=== PATIENT | female | born 1965 | race Caucasian/White ===

== ENCOUNTER 2016-10-06 11:47 | Observation (INO) | payer OTHER ==
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
[2016-10-06] MEDS ORDERED: NALOXONE HCL 0.4 MG/ML INJ IVP PRN (14:20)
[2016-10-06] MEDS ORDERED: ONDANSETRON 4 MG/2 ML VIAL IVP PRN (14:20)
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
[2016-10-06] MEDS ORDERED: LACTULOSE 20 GM/30 ML UDCUP PO PRN (17:02)
[2016-10-06] MEDS ORDERED: BISACODYL 10 MG SUPP PR PRN (17:02)
[2016-10-06] MEDS ORDERED: MAGNESIUM HYDROXIDE 30 ML UDCUP PO PRN (17:02)
[2016-10-06] MEDS ORDERED: POLYETHYLENE GLYCOL 3350 17 GM PKT PO PRN (17:02)
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
[2016-10-06 18:44] LABS: HEMOGLOBIN 12.7 g/dL (12.6-16.3)
[2016-10-06] MEDS: SENNOSIDES/DOCUSATE SODIUM TAB PO SCH (20:46)
[2016-10-06] MEDS: HYDROCODONE/APAP 5/325 TAB PO PRN (22:58)
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
[2016-10-07] MEDS: SENNOSIDES/DOCUSATE SODIUM TAB PO SCH ×2 (09:16→21:01)
[2016-10-07] MEDS: ENOXAPARIN 40 MG/0.4 ML SYR SC SCH (09:17)
[2016-10-07] MEDS: CYCLOBENZAPRINE 10 MG TAB PO PRN ×2 (09:17→15:33)
[2016-10-07] MEDS: ACETAMINOPHEN 325 MG TAB PO PRN ×2 (09:17→14:52)
[2016-10-07] MEDS: HYDROCODONE/APAP 5/325 TAB PO PRN (22:01)
[2016-10-08] MEDS: ACETAMINOPHEN 325 MG TAB PO PRN ×3 (07:38→20:41)
[2016-10-08] MEDS: SENNOSIDES/DOCUSATE SODIUM TAB PO SCH ×2 (07:46→20:41)
[2016-10-08] MEDS: ENOXAPARIN 40 MG/0.4 ML SYR SC SCH (07:47)
[2016-10-08] MEDS: CYCLOBENZAPRINE 10 MG TAB PO PRN ×2 (10:34→16:03)
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
[2016-10-08] MEDS ORDERED: traMADol 50 MG TAB PO PRN (20:35)
[2016-10-09] MEDS: ACETAMINOPHEN 325 MG TAB PO PRN (06:15)
[2016-10-09 07:49] VITALS: BP 96/62; PULSE 58; RESP 14; TEMP 98.5; O2SAT 95
[2016-10-09] MEDS: SENNOSIDES/DOCUSATE SODIUM TAB PO SCH (08:57)
[2016-10-09] MEDS: CYCLOBENZAPRINE 10 MG TAB PO PRN (08:57)
[2016-10-09] MEDS: ENOXAPARIN 40 MG/0.4 ML SYR SC SCH (08:58)
--- NOTE | 2016-10-09 12:23 | PDIAF ---
- Diagnosis Diagnosis: Supierior and inferior pubic rami fracture, parasymphyseal pubic fracture, Code Status: Full Code - Medication Management Discharge Medications: Medications to Continue on Transfer Cyclobenzaprine [Flexeril 10 MG (*)] 10 mg PO TID PRN #0 tab 10/09/16 [Last Taken Unknown] Hydrocodone/APAP 5/325 [[place] 5/325 (*)] 1 - 2 tab PO Q4HRS PRN #0 tab 10/09/16 [Last Taken Unknown] traMADol [Ultram 50 mg (*)] 50 - 100 mg PO Q6 PRN #0 tab 10/09/16 [Last Taken Unknown] Discharge Medications: Refer to the Discharge Home Medication list for PRN reason. PICC Care - Routine: N/A - Orders Services needed: Physical Therapy, Occupational Therapy Diet Recommendation: no restrictions on diet Diet Texture: Regular Texture Diet Brown: Not applicable Hernan Stockings Discontinue Date: Discontinue once patient is mobile Activity/Weight Bearing Restrictions: Weight bearing as tolerated BLE with assistive device - Follow Up Care Current Providers and Referrals: Tyrell Venegas MD [Medical Doctor] - Patient,NotPresent [Unknown] - As per Instructions
== END 2016-10-09 11:09 | disposition home health service (06) ==
LOC: EDUNIT# → INTOOBSV 13:51 → F3N 15:02
PROVIDERS: ADMIT Surgery; ATTEND Surgery
DX: S32.511A Fracture of superior rim of right pubis, initial encounter for closed fracture (principal); S32.591A Other specified fracture of right pubis, initial encounter for closed fracture; S32.10XA Unspecified fracture of sacrum, initial encounter for closed fracture; V19.9XXA Pedal cyclist (driver) (passenger) injured in unspecified traffic accident, initial encounter; S50.311A Abrasion of right elbow, initial encounter; S30.0XXA Contusion of lower back and pelvis, initial encounter; Y93.55 Activity, bike riding; I95.9 Hypotension, unspecified; Y92.414 Local residential or business street as the place of occurrence of the external cause; Y99.8 Other external cause status; Z87.891 Personal history of nicotine dependence
CPT/HCPCS: 72192; 73080; 97116; 97161; 97165; 97530; 97535; 99285; G0378; J1650